=== PATIENT | female | born 1950 | race African-American/Black ===

== ENCOUNTER 2017-08-19 06:06 | Day surgery (SDC) | payer OTHER ==
[2017-08-18 14:24] VITALS: BMI 32.8
[2017-08-19] MEDS ORDERED: ROPIVACAINE HCL 0.5% 30ML VIAL ONE (13:48)
[2017-08-19] MEDS ORDERED: MIDAZOLAM HCL 2 MG/2 ML SINGLE DOSE VIAL ONE ×2 (14:16)
[2017-08-19] MEDS ORDERED: PROPOFOL 20 ML ONE ×2 (14:58)
--- NOTE | 2017-08-19 15:13 | HP ---
[facility] - Chief Complaint Chief Complaint: right wrist pain History of Present Illness: s/p fall, right wrist fracture Limitations to Obtaining History: No Limitations - Past Medical History Allergies/Adverse Reactions: Allergies Allergy/AdvReac Type Severity Reaction Status Date / Time No Known Allergies Allergy Verified 08/19/17 12:44 - Current Medications Current Medications: Home Medications Medication Instructions Recorded Glyburide/Metformin HCl 1 each PO BID 08/18/17 [Glucovance 2.5-500 mg Tablet] Levothyroxine [Synthroid -] 112 mcg PO DAILY 08/18/17 Pioglitazone HCl 45 mg PO DAILY 08/19/17 Saxagliptin HCl [Onglyza] 5 mg PO DAILY 08/19/17 Simvastatin 40 mg PO DAILY 08/19/17 Satellite Physical Exam - Physical Examination Vital Signs: Vital Signs Period Temp Pulse Resp BP Sys/Gutierrez Pulse Ox Last 24 Hr 98.5 F 79 20 129/70 99 General Appearance: Well Nourished ENT: Clear Lung: Clear to auscultation Heart: Regular rate & rhythm Breasts: Soft Abdomen: Soft Extremities: No edema [facility]ellite Impression/Plan - Impression/Plan Impression: right distal radius fracture Operative Procedure: right wrist ORIF Date to be Performed: 08/19/17
[2017-08-19] MEDS ORDERED: LIDOCAINE HCL/PF 2% SDV 5ML VIAL ONE (15:26)
[2017-08-19] MEDS ORDERED: LIDOCAINE HCL 2% 100 MG/5 ML DISP.SYRIN ONE (15:26)
[2017-08-19] MEDS ORDERED: ceFAZolin SODIUM 1 GM VIAL IVPB ONE (15:30)
[2017-08-19] MEDS ORDERED: ceFAZolin SODIUM 1 GM VIAL ONE (15:43)
[2017-08-19] MEDS ORDERED: SODIUM CHLORIDE 0.9% P/F 10 ML VIAL IJ ONE (15:43)
[2017-08-19] MEDS ORDERED: KETOROLAC TROMETHAMINE 30 MG/1 ML VIAL ONE (16:08)
[2017-08-19] MEDS ORDERED: ACETAMINOPHEN INJECTION 100 ML IVPB ONE (17:01)
[2017-08-19] MEDS ORDERED: ACETAMINOPHEN 1000 MG/100 ML VIAL (NON FORMULARY) IVPB ONE (17:10)
[2017-08-19 18:08] VITALS: TEMP 98.4
[2017-08-19] MEDS ORDERED: ONDANSETRON 4 MG/2 ML VIAL IVPUSH PRN (18:30)
[2017-08-19] MEDS ORDERED: LACTATED RINGERS SOLUTION 1,000 ML IV SCH (18:30)
[2017-08-19] MEDS ORDERED: oxyCODONE HCL 5 MG TABLET PO PRN (18:30)
[2017-08-19 19:01] VITALS: BP 136/68; PULSE 90
--- NOTE | 2017-08-20 13:07 | SPEC ---
DATE OF OPERATION: 08/19/2017 PREOPERATIVE DIAGNOSIS: Right distal radius fracture comminuted and intra-articular. POSTOPERATIVE DIAGNOSIS: Right distal radius fracture comminuted and intra-articular. PROCEDURE: Right distal radius open reduction internal fixation. SURGEON: George Santos MD CAD DRAFTER: None. ANESTHESIA: LMA anesthesia. ANESTHESIOLOGIST: Arnoldo Johnson MD DRAINS: None. COMPLICATIONS: None. SPECIMEN: None. BLOOD LOSS: None. BLOOD GIVEN: None. FLUID REPLACEMENT: 500 mL. TOURNIQUET TIME: 53 minutes. INDICATIONS: This patient is a 67-year-old female with a preoperative diagnosis of a right comminuted intra-articular distal radius fracture. After understanding the potential risks, complications, alternatives, and benefits to surgery versus nonsurgical treatment, the patient elected to undergo this procedure. She understands her right wrist may never be the same. She may have decreased range of motion, decreased strength, need for additional surgery including removal of hardware, need for physical therapy, decreased endurance, etc. DESCRIPTION OF PROCEDURE: The entire case was done under 3.8 loupe magnification. Typical FCR approach was marked out with a marking pen and incision made with No. 15 scalpel blade. Subcutaneous hemostasis was achieved with a bipolar cautery. The radial artery was retracted gently in a radial direction and ulnar to this, using a fresh No. 15 scalpel blade, the muscular fascia was incised. Blunt dissection was done with my index finger down to the volar aspect of the distal radius. Weitlaner retractors were placed deep into the wound for visualization. A periosteal elevator was used to do subperiosteal dissection exposing the fracture site. There was a main transverse component to the distal radius fracture but in addition there were several pieces, some extending towards the radial carpal joint and some towards the distal radial ulnar joint. The fracture site was copiously irrigated and washed out. All debris including hematoma and muscle were removed. A provisional reduction was performed and seemed to come together quite nicely. There was a small metaphyseal defect. X-rays were taken in A-P and lateral planes documenting excellent position of the fracture fragments, restoring radial height inclination and volar tilt. Next a standard hand innovations left volar low profile DVR plate was placed on the volar aspect of the distal radius. Two K-wires were placed and x-rays were taken documenting excellent position, length and subchondral position. We used three 3.5 mm screws of 12 mm, 12 mm and 14 mm in length placed in a standard fashion, this was 14 mm in length. We used 4 screws of the distal-proximal row of 22-24 mm in length. X-rays again were taken documenting excellent position and support of the subchondral bone. The rest of the screws were then put in, first 2 additional purple proximal screws of 12 and 14 mm in length for 6 cortices proximally and then the silver drill bit was used to put in the remaining 6 screws of both the proximal and distal row from 18 mm to 24 mm of length, all partially threaded locking screws. All of the guides were removed and passed off the field. Final x-rays were taken in A-P and lateral planes. I was quite happy with the fracture reduction position, position of the radial carpal joint, distal radial ulnar joint length, height and tilt. GEORGE SANTOS M.D. [id number]
== END 2017-08-19 19:05 | disposition home or self-care (01) ==
LOC: JASU-SURG 06:06
PROVIDERS: ATTEND Orthopaedic Surgery
PROC: 0PSH04Z Reposition Right Radius with Internal Fixation Device, Open Approach (ICD-10-PCS; principal; 2017-08-19 14:30)
DX: S52.571A Other intraarticular fracture of lower end of right radius, initial encounter for closed fracture (principal); X58.XXXA Exposure to other specified factors, initial encounter; Y93.9 Activity, unspecified; Y92.9 Unspecified place or not applicable; Y99.9 Unspecified external cause status
CPT/HCPCS: 76000-TC